=== PATIENT | female | born 1960 | race African-American/Black ===

== ENCOUNTER → 2016-11-14 | Outpatient (CLI) | payer SELFPAY | LOC: YCFC.O 16:59 | PROVIDERS: ATTEND Nurse Practitioner Family | DX: I10 Essential (primary) hypertension (principal) ==

== ENCOUNTER 2016-12-02 12:48 | Emergency (ER) | payer SELFPAY ==
--- NOTE | 2016-12-02 12:57 | ED.PDOC ---
History of Present Illness - General Chief Complaint: Allergic Reaction Stated Complaint: itching Time Seen by Provider: 12/02/16 12:56 Source: patient Exam Limitations: no limitations - History of Present Illness Initial Comments: Jaida Valdivia 56 y/o female stated that she started itching about an hour ago no new soaps,perfumes ,detergents recently. Had been taking bactrim for her sinus infection and meloxicam for her osteoarthritis Timing/Duration: just prior to arrival Severity: moderate Location: face, extremities Improving Factors: nothing Worsening Factors: nothing Associated Symptoms: itching Allergies/Adverse Reactions: Allergies NO KNOWN ALLERGY Allergy (Unverified 03/18/14 12:57) Home Medications: Ambulatory Orders Naproxen Sodium [Anaprox Ds] 550 mg PO BID #30 tab 06/13/14 Amoxicillin [Amoxil] 1,000 mg PO BID #30 cap 12/02/16 Prednisone 10 mg PO BID #10 sujit 12/02/16 Past Medical History (General) - Patient Medical History Hx Stroke: No Hx Asthma: No Hx Congestive Heart Failure: No Hx Hypertension: Yes - has been off of meds for years, controlled now Hx Diabetes: No Surgical History: no surgical history - Vaccination History Hx Influenza Vaccination: No - Social History Hx Tobacco Use: Yes Hx Alcohol Use: Yes - Activities of Daily Living Patient Lives Alone: No - Female History Patient : No Family Medical History - Family History Mother Living Status: Still Living Hx Family Hypertension: Yes Hx Family Diabetes: Yes Physical Exam - Physical Exam General Appearance: Alert, Anxious, No apparent distress Eyes, Ears, Nose, Throat Exam: PERRL/EOMI, normal ENT inspection, TMs normal Neck: non-tender, full range of motion Cardiovascular/Chest: normal peripheral pulses, regular rate, rhythm, no edema, no murmur Respiratory: chest non-tender, lungs clear, normal breath sounds Gastrointestinal/Abdominal: normal bowel sounds, non tender, soft Back Exam: normal inspection, no CVA tenderness Extremity: normal range of motion, non-tender, normal inspection, no calf tenderness Neurologic: alert, oriented x 3 Skin Exam: warm/dry, normal color Skin Problem Location: face, upper extremities Skin Character: urticarial Lymphatic: no adenopathy Departure - Departure Clinical Impression: Allergic reaction caused by a drug Qualifiers: Encounter type: initial encounter Qualified Code(s): T78.40XA - Allergy, unspecified, initial encounter Time of Disposition: 13:34 Disposition: Discharge to Home or Self Care Condition: Good Referrals: Allegra Link FNP [Primary Care Provider] - 1-2 Weeks Prescriptions: Amoxicillin [Amoxil] 1,000 mg PO BID #30 cap Prednisone 10 mg PO BID #10 sujit Home Medications: Ambulatory Orders Naproxen Sodium [Anaprox Ds] 550 mg PO BID #30 tab 06/13/14 Amoxicillin [Amoxil] 1,000 mg PO BID #30 cap 12/02/16 Prednisone 10 mg PO BID #10 sujit 12/02/16 Additional Instructions: Continue with Benadryl 25(otc) 1-2 capsule 4x a day as needed for itching Return to emergency room as needed DISCONTINUE BACTRIM.
[2016-12-02] MEDS: diphenhydrAMINE HCL 50 MG/ML VIAL IM ONE (13:04)
[2016-12-02] MEDS: DEXAMETHASONE INJ 4 MG/ML VIAL IM ONE (13:04)
[2016-12-02] MEDS: EPINEPHrine HCL AMP 1 MG/ML AMP IM ONE (13:05)
[2016-12-02] MEDS: predniSONE 10 MG TAB PO ONE (13:05)
[2016-12-02] MEDS: diphenhydrAMINE HCL 25 MG CAP PO ONE (13:05)
[2016-12-02 13:53] VITALS: BP 130/85
== END 2016-12-02 13:49 | disposition home or self-care (01) ==
LOC: ER 12:48
DX: T78.40XA Allergy, unspecified, initial encounter (principal); Z87.891 Personal history of nicotine dependence; X58.XXXA Exposure to other specified factors, initial encounter
CPT/HCPCS: J1100; J1200; J7512; Q0163

== ENCOUNTER 2017-05-26 16:09 | Emergency (ER) | payer SELFPAY ==
[2017-05-26 16:23] VITALS: TEMP 97.1; O2SAT 98
--- NOTE | 2017-05-26 16:39 | ED.PDOC ---
History of Present Illness - General Chief Complaint: Respiratory Problem Stated Complaint: cough, nasal congestion Time Seen by Provider: 05/26/17 16:28 Source: patient Exam Limitations: no limitations Additional Information: PT WITH SEVERE NASAL CONGESTION, COUGH, HAS SEEN PCP AND TAKEN OTC MEDS. NO RELIEF. - History of Present Illness Timing/Duration: 1 week Severity: moderate Improving Factors: nothing Worsening Factors: nothing Allergies/Adverse Reactions: Allergies Sulfamethoxazole w/Trimethoprim [From Bactrim] Allergy (Verified 05/26/17 16:21) Home Medications: Ambulatory Orders Naproxen Sodium [Anaprox Ds] 550 mg PO BID #30 tab 06/13/14 Amoxicillin [Amoxil] 1,000 mg PO BID #30 cap 12/02/16 Prednisone 10 mg PO BID #10 sujit 12/02/16 Amoxicillin & Pot Clavulanate [Augmentin] 1 tab PO BID #20 tab 05/26/17 Fluticasone Propionate (Nasal) [Flonase] 50 mcg NA DAILY #1 bottle 05/26/17 Review of Systems - Review of Systems Constitutional: Denies: chills, fever EENTM: States: no symptoms reported Respiratory: States: cough. Denies: short of breath, wheezing Cardiology: States: no symptoms reported Gastrointestinal/Abdominal: States: no symptoms reported Genitourinary: States: no symptoms reported Musculoskeletal: States: no symptoms reported Skin: States: no symptoms reported Neurological: Denies: headache, numbness, paresthesia Endocrine: States: no symptoms reported Hematologic/Lymphatic: States: no symptoms reported Past Medical History (General) - Patient Medical History Hx Stroke: No Hx Asthma: No Hx Congestive Heart Failure: No Hx Hypertension: Yes - has been off of meds for years, controlled now Hx Diabetes: No Surgical History: no surgical history - Vaccination History Hx Influenza Vaccination: No Hx Pneumococcal Vaccination: No - Social History Hx Tobacco Use: Yes Hx Alcohol Use: Yes - Female History Patient : No Family Medical History - Family History Mother Living Status: Still Living Hx Family Hypertension: Yes Hx Family Diabetes: Yes Physical Exam - Physical Exam General Appearance: Alert, No apparent distress Eye Exam: bilateral normal Ears, Nose, Throat: hearing grossly normal, normal ENT inspection, normal pharynx, other - SEVERE EDEMA OF NASAL MUCOSA, CLEAR RHINORRHEA Neck: full range of motion, supple, normal inspection Respiratory: lungs clear, normal breath sounds, no respiratory distress Cardiovascular/Chest: regular rate, rhythm, no murmur Gastrointestinal/Abdominal: normal bowel sounds, non tender, soft, no organomegaly Back Exam: normal inspection, no CVA tenderness Extremity: normal range of motion, non-tender, normal inspection Neurologic: alert, normal mood/affect Skin Exam: normal color, warm/dry Lymphatic: no adenopathy Departure - Departure Clinical Impression: Bronchitis Sinusitis Qualifiers: Sinusitis location: frontal Chronicity: acute Recurrence: non-recurrent Qualified Code(s): J01.10 - Acute frontal sinusitis, unspecified Time of Disposition: 17:48 Disposition: Discharge to Home or Self Care Condition: Good Departure Forms: ED Discharge - Pt. Copy, Patient Portal Self Enrollment Instructions: Sinusitis Referrals: Allegra Link NP [Primary Care Provider] - 1-2 Weeks Prescriptions: Amoxicillin & Pot Clavulanate [Augmentin] 1 tab PO BID #20 tab Fluticasone Propionate (Nasal) [Flonase] 50 mcg NA DAILY #1 bottle Home Medications: Ambulatory Orders Naproxen Sodium [Anaprox Ds] 550 mg PO BID #30 tab 06/13/14 Amoxicillin [Amoxil] 1,000 mg PO BID #30 cap 12/02/16 Prednisone 10 mg PO BID #10 sujit 12/02/16 Amoxicillin & Pot Clavulanate [Augmentin] 1 tab PO BID #20 tab 05/26/17 Fluticasone Propionate (Nasal) [Flonase] 50 mcg NA DAILY #1 bottle 05/26/17
--- NOTE | 2017-05-26 16:50 | RAD ---
EXAM DESCRIPTION: Chest,2 Views CLINICAL HISTORY: COUGH COMPARISON: None Available. TECHNIQUE: PA/lateral FINDINGS: Cardiomediastinal silhouette and pulmonary vascularity are within normal limits. Lungs are clear without focal consolidations. Bilateral costophrenic angles are sharp. No pneumothorax. Mild degenerative changes of the thoracic spine. IMPRESSION: No radiographic evidence for acute cardiopulmonary process. Electronically signed by: Dave Chilel MD 05/26/2017 4:49 PM FRATERNITY ADVISER
[2017-05-26] MEDS ORDERED: TRIAMCINOLONE ACETONIDE INJ 40 MG/ML VIAL IM ONE (17:46)
[2017-05-26 18:21] VITALS: BP 181/110
== END 2017-05-26 18:21 | disposition home or self-care (01) ==
LOC: ER 16:09
DX: J40 Bronchitis, not specified as acute or chronic (principal); J01.10 Acute frontal sinusitis, unspecified; Z87.891 Personal history of nicotine dependence
CPT/HCPCS: 71046; 87804; J3301

== ENCOUNTER 2018-10-19 10:04 | Emergency (ER) | payer SELFPAY ==
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
[2018-10-19] MEDS: cloNIDine HCL 0.1 MG TAB PO ONE (11:02)
[2018-10-19] MEDS: METHOCARBAMOL 750 MG TAB PO ONE (11:05)
[2018-10-19] MEDS: HYDROcodone 7.5MG/APAP 325MG 1 EA TAB PO ONE (11:06)
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
[2018-10-19 12:19] VITALS: BP 136/93; TEMP 97.1; O2SAT 99
== END 2018-10-19 12:19 | disposition home or self-care (01) ==
LOC: ER 10:04
DX: S22.42XA Multiple fractures of ribs, left side, initial encounter for closed fracture (principal); R07.89 Other chest pain; R51 Headache; M62.838 Other muscle spasm; S40.022A Contusion of left upper arm, initial encounter; S70.11XA Contusion of right thigh, initial encounter; S20.419A Abrasion of unspecified back wall of thorax, initial encounter; I51.9 Heart disease, unspecified; K21.9 Gastro-esophageal reflux disease without esophagitis; V49.88XA Car occupant (driver) (passenger) injured in other specified transport accidents, initial encounter; Y92.410 Unspecified street and highway as the place of occurrence of the external cause; Z79.899 Other long term (current) drug therapy; Z87.891 Personal history of nicotine dependence; Z88.2 Allergy status to sulfonamides